=== PATIENT | male | born 1995 | race Caucasian/White ===

== ENCOUNTER 2018-06-29 12:49 | Emergency (ER) | payer OTHER ==
[2018-06-29 13:38] VITALS: BP 106/66
--- NOTE | 2018-06-29 13:41 | UC ---
Ear Complaint HPI - HPI Summary HPI Summary: Pt has had a cold for 2.5 weeks. noticed discomfort in ear and it has been worsening. Left ear very tender to touch. No drainage noted. No pain radiating from ear. No increased pain with swallowing. - History of Current Complaint Chief Complaint: UCEar Stated Complaint: EAR PAIN Time Seen by Provider: 06/29/18 13:30 Hx Obtained From: Patient Onset/Duration: Sudden Onset, Lasting Weeks Severity Initially: Moderate Severity Currently: Moderate Pain Intensity: 3 Associated Signs/Symptoms: Positive: URI Symptoms - Allergies/Home Medications Allergies/Adverse Reactions: Allergies Allergy/AdvReac Type Severity Reaction Status Date / Time No Known Allergies Allergy Verified 06/29/18 13:38 Home Medications: Home Medications Cholecalciferol TAB* [Vitamin D TAB*] 4,000 units PO DAILY 06/29/18 [History Confirmed 06/29/18] Multivitamin [Multivitamins] 1 cap PO PRN 06/29/18 [History] [place]-3 Fatty Acids (Nf) [Fish Oil (NF)] 1,000 mg PO DAILY 06/29/18 [History Confirmed 06/29/18] Tumeric PO DAILY 06/29/18 [History] Zinc 50 mg PO DAILY 06/29/18 [History Confirmed 06/29/18] PMH/Surg Hx/FS Hx/Imm Hx Previously Healthy: Yes - Surgical History Surgical History: None Surgery Procedure, Year, and Place: February 2018- right shoulder surgery - Family History Known Family History: Positive: Hypertension - Social History Alcohol Use: Weekly Substance Use Type: None Smoking Status (MU): Never Smoked Tobacco Review of Systems All Other Systems Reviewed And Are Negative: Yes ENT: Positive: Ear Ache, Nasal Discharge Respiratory: Positive: Cough Is Patient Immunocompromised?: No Physical Exam Triage Information Reviewed: Yes Appearance: Well-Appearing, Well-Nourished, Pain Distress Vital Signs: Initial Vital Signs Temp 99.2 F 06/29/18 13:31 Pulse 72 06/29/18 13:31 Resp 16 06/29/18 13:31 BP 106/66 06/29/18 13:31 Pulse Ox 98 06/29/18 13:31 Vital Signs Reviewed: Yes Eye Exam: Normal ENT: Positive: Pharyngeal erythema, TMs normal, Tonsillar swelling, Tonsillar exudate Dental Exam: Normal Neck: Positive: Enlarged Nodes @ - left cervical Respiratory Exam: Normal Cardiovascular Exam: Normal Abdominal Exam: Normal Bowel Sounds: Positive: Present Musculoskeletal Exam: Normal Neurological Exam: Normal Psychological Exam: Normal Skin Exam: Normal Ear Complaint Course/Dx - Course Course Of Treatment: hx obtained, exam performed, meds reviewed, rapid strep is negative - Differential Dx/Diagnosis Differential Diagnosis/HQI/PQRI: Cerumen Impaction, Otitis Externa, Otitis Media , URI Provider Diagnosis: Serous otitis media, Lymphadenopathy Discharge - Sign-Out/Discharge Documenting (check all that apply): Patient Departure All imaging exams completed and their final reports reviewed: No Studies - Discharge Plan Condition: Stable Disposition: HOME Prescriptions: predniSONE [Prednisone 20 MG TAB] 40 mg PO DAILY #14 tablet Patient Education Materials: Serous Otitis Media (ED) Referrals: No Primary Care Phys,NOPCP [Primary Care Provider] - Additional Instructions: 1. continue with the nasal washes, and conservative measures you are already taking. 2. Use the prednisone as directed 3. Warm compresses to the ear to help with pain as well as ibuprofen. 4. Follow up if not improving with treatment - Billing Disposition and Condition Condition: STABLE Disposition: Home
== END 2018-06-29 14:18 | disposition home or self-care (01) ==
LOC: UCCORT 12:49
DX: H65.92 Unspecified nonsuppurative otitis media, left ear (principal); R59.0 Localized enlarged lymph nodes; R09.89 Other specified symptoms and signs involving the circulatory and respiratory systems; R05 Cough
CPT/HCPCS: 87651; 99202; G0463